=== PATIENT | female | born 1935 | race Caucasian/White ===

== ENCOUNTER 2017-11-21 11:11 | Outpatient (CLI) | payer MEDICARE ==
--- NOTE | 2017-11-21 11:43 | RAD ---
PA AND LATERAL VIEWS CHEST: HISTORY: Dyspnea. COMPARISON: 08/08/2016 FINDINGS: The heart size is stable. Scoliosis of the spine is redemonstrated. Chronic changes bilaterally, le ft greater than right. No lobar consolidation or pneumothoraces is seen. No large pleural effusions are identified. The bones are osteopenic. IMPRESSION: Chronic lung changes. POS: GERADL
== END 2017-11-21 11:12 | disposition home or self-care (01) ==
LOC: RAD 11:11
PROVIDERS: ATTEND Internal Medicine Critical Care Medicine
DX: R06.00 Dyspnea, unspecified (principal)
CPT/HCPCS: 71046

== ENCOUNTER 2018-02-08 19:41 | Emergency (ER) | payer MEDICARE ==
[2018-02-08] MEDS ORDERED: Adacel (T-DAP) 0.5 ML SYRINGE ONE (20:04)
[2018-02-08] MEDS ORDERED: Lidocaine 1% PF 5 ML VIAL ONE (20:04)
[2018-02-08] MEDS ORDERED: Bacitracin Zinc 1 Packet ONE (20:28)
== END 2018-02-08 20:35 | disposition home or self-care (01) ==
LOC: SCSER 19:41
DX: S61.212A Laceration without foreign body of right middle finger without damage to nail, initial encounter (principal); I10 Essential (primary) hypertension; E78.5 Hyperlipidemia, unspecified; J44.9 Chronic obstructive pulmonary disease, unspecified; Z79.899 Other long term (current) drug therapy; W23.0XXA Caught, crushed, jammed, or pinched between moving objects, initial encounter
CPT/HCPCS: 12001; 90471; 90715; J2001

== ENCOUNTER 2019-01-02 09:49 | Outpatient (CLI) | payer MEDICARE ==
--- NOTE | 2019-01-02 10:15 | RAD ---
EXAM: Chest 2 views: HISTORY: Dyspnea COMPARISON: 11/21/2017 FINDINGS: Very extensive bilateral linear, interstitial, reticular nodular parenchymal changes post marked in t he left perihilar region evidence for extensive scarring and blunting of costophrenic angles and biapical pleural thickening. Stable dextroscoliosis. Bony demineralization. Hyperinflation, stable. Heart size:Within normal limits. Lungs:Clear of acute process. Atherosclerotic changes of the aorta. No confluent pneumonia, overt edema, pleural effusion, pneumothorax, or other significant acute proce ss. IMPRESSION: Extensive stable bilateral chronic changes. Other findings as above. Atherosclerosis of the aorta. No acute intrathoracic disease.
== END 2019-01-02 09:50 | disposition home or self-care (01) ==
LOC: RAD 09:49
PROVIDERS: ATTEND Internal Medicine Critical Care Medicine
DX: R06.00 Dyspnea, unspecified (principal); I70.0 Atherosclerosis of aorta; M41.80 Other forms of scoliosis, site unspecified; J92.9 Pleural plaque without asbestos; M81.0 Age-related osteoporosis without current pathological fracture
CPT/HCPCS: 71046

== ENCOUNTER 2020-08-05 10:10 | Outpatient (CLI) | payer MEDICARE | END 2020-08-05 10:11 | disposition home or self-care (01) | LOC: BICRAD 10:10 | PROVIDERS: ATTEND Internal Medicine Critical Care Medicine | DX: R06.00 Dyspnea, unspecified (principal); J18.1 Lobar pneumonia, unspecified organism | CPT/HCPCS: 71046 ==

== ENCOUNTER 2021-08-25 14:19 | Outpatient (CLI) | payer MEDICARE | END 2021-08-25 14:20 | disposition home or self-care (01) | LOC: SCSRAD 14:19 | PROVIDERS: ATTEND Family Medicine | DX: J18.9 Pneumonia, unspecified organism (principal) | CPT/HCPCS: 71046 ==

== ENCOUNTER 2021-09-05 09:42 | Outpatient (CLI) | payer MEDICARE | END 2021-09-05 09:43 | disposition home or self-care (01) | LOC: RAD 09:42 | PROVIDERS: ATTEND Internal Medicine Critical Care Medicine | DX: R06.00 Dyspnea, unspecified (principal) | CPT/HCPCS: 71046 ==

== ENCOUNTER 2021-12-09 09:15 | Outpatient (CLI) | payer MEDICARE | END 2021-12-09 09:16 | disposition home or self-care (01) | LOC: RAD 09:15 | PROVIDERS: ATTEND Internal Medicine Critical Care Medicine | DX: R06.09 Other forms of dyspnea (principal) | CPT/HCPCS: 71046 ==